=== PATIENT | female | born 1955 | race Two or more races ===

== ENCOUNTER → 2017-10-06 | Outpatient (CLI) | payer BC, OTHER ==
--- NOTE | 2017-10-06 13:13 | RAD ---
DATE: 10/06/2017 EXAM: DIGITAL SCREEN BILAT W/CAD HISTORY: Routine screening COMPARISON: 09/16/2015 This study was interpreted with the benefit of Computerized Aided Detection (CAD). The breast parenchyma is heterogeneously dense, which could reduce sensitivity of mammography. Breast parenchyma level C. FINDINGS: The fibroglandular tissues in the retroareolar regions are heterogeneously dense. No new or enlarging breast densities are seen. Benign type calcifications are present. No suspicious microcalcifications have developed. IMPRESSION: Stable mammograms without evidence of malignancy. BI-RADS CATEGORY: 2 BENIGN FINDING(S) RECOMMENDED FOLLOW-UP: 12M 12 MONTH FOLLOW-UP PQRS compliance statement: Patient information was entered into a reminder system with a target due date for the next mammogram. Mammography is a sensitive method for finding small breast cancers, but it does not detect them all and is not a substitute for careful clinical examination. A negative mammogram does not negate a clinically suspicious finding and should not result in delay in biopsying a clinically suspicious abnormality. "Our facility is accredited by the [employer] Mammography [employer]."
--- NOTE | 2017-10-06 13:49 | RAD ---
Bone densitometry scan, 10/06/2017: History: Follow-up osteopenia The lumbar spine and right hip were examined utilizing a DEXA technique. The bone mineral density in the lumbar spine as measured from the L1-L4 levels is 1.28 g/sq cm. This yields a T score of 0.8 which is in the normal range. The lumbar spine T score on the 09/16/2015 exam was 0.9. Hypertrophic degenerative changes may be elevating these measurements. The total T score at the right hip is -1.3 compatible with osteopenia. This has worsened slightly since the previous study at which time the right hip T score was -1.2. IMPRESSION: 1. Mild osteopenia at the right hip. 2. Normal bone mineral density measurement in the lumbar spine.
== END | disposition home or self-care (01) ==
LOC: MAMMO 09:44
PROVIDERS: ATTEND Family Medicine
DX: Z12.31 Encounter for screening mammogram for malignant neoplasm of breast (principal); Z13.820 Encounter for screening for osteoporosis; M85.851 Other specified disorders of bone density and structure, right thigh
CPT/HCPCS: 77067; 77080

== ENCOUNTER → 2021-03-12 | Outpatient (CLI) | payer MEDICARE, OTHER ==
--- NOTE | 2021-03-12 16:00 | RAD ---
Digital Mammogram Bilateral History: Routine screening Technique: 2-D digital CC and MLO views were obtained. CAD - computer aided detection was utilize d. Comparison: Mammograms from 10/06/2017 and 2115.. Findings: Breast Tissue Density B : There are scattered areas of fibroglandular density There are no suspicious masses, malignant appearing calcifications, or areas of architectural distort ion. Impression: No evidence of malignancy. Assessment: BI-RADS Category 1: Negative. Recommendation: Routine screening mammograms. The patient will receive a letter with the results in the mail. Patient information will be entered i nto the mammography reminder system with a target recall date for the next mammogram. A reminder kim er will be generated. Electronically signed by: Kimberly Shafer MD (03/12/2021 3:57 PM) [id number]
--- NOTE | 2021-03-12 17:18 | RAD ---
DXA BONE DENSITY AXIAL History: Reason: SCREENING / Spl. Instructions: / History: Comparison: October 06, 2017 TECHNIQUE: Dual energy x-ray absorptiometry of the lumbar spine and right hip was performed. T-score of average bone mineral density based was calculated based on standard deviations above or below the expected young adult normal value. Diagnostic definitions were established by the [employer]. FINDINGS: The average bone mineral density associated with L1-L4 is 1.267 g/cm^2, corresponding with a T-score of 1.1. No significant interval change compared to prior. The average total bone mineral density associated with right hip is 0.820 g/cm^2, corresponding with a T-score of -1.1. Left femoral neck T score -1.9. No significant interval change compared to prior. Refer to the worksheets for full detail. IMPRESSION: 1. Osteopenia. Average bone mineral density yields a T-score between -1.0 and -2.5. Fracture risk is increased. Electronically signed by: Joseph Munguia DO (03/12/2021 5:16 PM) [id number]
== END ==
LOC: MAMMO 10:52
PROVIDERS: ATTEND Family Medicine
DX: Z12.31 Encounter for screening mammogram for malignant neoplasm of breast (principal); M85.89 Other specified disorders of bone density and structure, multiple sites
CPT/HCPCS: 77067; 77080